=== PATIENT | female | born 1960 | race Caucasian/White ===

== ENCOUNTER 2020-02-28 19:47 | Inpatient (IN) | payer OTHER ==
[~2020-02-28] VITALS: Ht 154.9 cm; Wt 71.2 kg
[2020-02-28 23:18] LABS: Basophils # (auto) 0.1 10 ^3/uL (0-0.2); Basophils % (auto) 0.7 % (0.0-2.0); Eosinophils # (auto) 0.2 10 ^3/uL (0-0.8); Eosinophils % (auto) 1.9 % (0.0-7.0); Hematocrit 36.5 % (36.0-46.0); Hemoglobin 12.1 g/dL (12.2-16.2); Lymphocytes # (auto) 2.5 10 ^3/uL (0.4-5.4); Mean Corpuscular Hemoglobin 29.4 pg (28.0-32.0); Mean Corpuscular Hgb Conc. 33.2 g/dL (32.0-36.0); Mean Corpuscular Volume 88.5 fL (80.0-100.0); Monocytes # (auto) 0.9 10 ^3/uL (0-1.3); Monocytes % (auto) 10.2 % (0.0-12.0); Neutrophils # (auto) 5.1 10 ^3/uL (1.6-8.6); Neutrophils % (auto) 58.2 % (37.0-80.0); Nucleated Red Blood Cells % 0.1 %; Platelet Count (auto) 272 10^3/uL (140-450); Red Blood Cells 4.12 10^6/uL (4.0-5.20); Red Cell Distribution Width 13.8 % (11.8-14.3); White Blood Cell 8.8 10^3/uL (4.4-10.8)
[2020-02-28 23:33] LABS: INR 0.92 (0.9-1.15); Partial Thromboplastin Time 27.1 sec (23.0-31.2)
[2020-02-28 23:38] LABS: Albumin 3.8 g/dL (3.4-5.0); Calcium 8.5 mg/dL (8.5-10.1); Potassium 3.6 mmol/L (3.5-5.1)
[2020-02-28 23:42] LABS: BUN/Creatinine Ratio 17.2; Bilirubin, Total 0.2 mg/dL (0.2-1.0); Total Protein 7.6 g/dL (6.4-8.2)
[2020-02-29] MEDS: MORPHINE SULFATE 4 MG/ML SYR/VIAL IV PRN ×4 (04:45→23:45)
[2020-02-29] MEDS: SODIUM CHLORIDE 0.9% 1,000 ML IV SCH ×2 (06:23→17:00)
[2020-02-29] MEDS: PANTOPRAZOLE 40 MG/10 ML VIAL INJ IV SCH (10:00)
[2020-02-29] MEDS: ONDANSETRON HCL 4 MG/2 ML VIAL IV PRN ×3 (11:15→23:45)
[2020-02-29 20:55] VITALS: BP 140/75
[2020-02-29] MEDS: HYDROcodone-ACET 5/325MG TAB PO PRN (22:41)
[2020-02-29 23:14] LABS: Urine Bacteria NONE SEEN /hpf (None Seen); Urine Blood Negative /uL (Negative); Urine WBC <1 /hpf (0 - 5)
[2020-03-01] VITALS: BP 137/77
[2020-03-01] MEDS ORDERED: TRAM50TA2 PO (00:16)
[2020-03-01] MEDS ORDERED: HYDR-4902 PO (00:16)
[2020-03-01] MEDS ORDERED: OMEP-434 PO (00:16)
[2020-03-01] MEDS ORDERED: GABA300C PO (00:16)
[2020-03-01] MEDS: ONDANSETRON HCL 4 MG/2 ML VIAL IV PRN ×5 (05:36→23:27)
[2020-03-01] MEDS: MORPHINE SULFATE 4 MG/ML SYR/VIAL IV PRN ×4 (05:36→23:27)
[2020-03-01] MEDS: SODIUM CHLORIDE 0.9% 1,000 ML IV SCH (05:46)
[2020-03-01 06:36] LABS: Basophils # (auto) 0 10 ^3/uL (0-0.2); Basophils % (auto) 0.7 % (0.0-2.0); Eosinophils # (auto) 0.2 10 ^3/uL (0-0.8); Eosinophils % (auto) 2.7 % (0.0-7.0); Hemoglobin 11.8 g/dL (12.2-16.2); Lymphocytes # (auto) 2.5 10 ^3/uL (0.4-5.4); Lymphocytes % (auto) 40.8 % (10.0-50.0); Mean Corpuscular Hemoglobin 29.7 pg (28.0-32.0); Mean Corpuscular Hgb Conc. 33.7 g/dL (32.0-36.0); Mean Corpuscular Volume 88.3 fL (80.0-100.0); Monocytes # (auto) 0.7 10 ^3/uL (0-1.3); Monocytes % (auto) 10.7 % (0.0-12.0); Neutrophils # (auto) 2.8 10 ^3/uL (1.6-8.6); Neutrophils % (auto) 45.1 % (37.0-80.0); Nucleated Red Blood Cells % 0.1 %; Platelet Count (auto) 211 10^3/uL (140-450); Red Blood Cells 3.96 10^6/uL (4.0-5.20); Red Cell Distribution Width 13.9 % (11.8-14.3); White Blood Cell 6.2 10^3/uL (4.4-10.8)
[2020-03-01 07:02] LABS: BUN/Creatinine Ratio 22.4; Calcium 8.5 mg/dL (8.5-10.1); Potassium 3.9 mmol/L (3.5-5.1)
[2020-03-01 08:00] VITALS: BP 127/72
[2020-03-01] MEDS: HYDROcodone-ACET 5/325MG TAB PO PRN ×3 (08:01→21:21)
[2020-03-01] MEDS: PANTOPRAZOLE 40 MG/10 ML VIAL INJ IV SCH (10:00)
[2020-03-01] MEDS ORDERED: SUCCINYLCHOLINE CHLORIDE 20 MG/ML 10ML VIAL IV ONE (11:35)
[2020-03-01] MEDS ORDERED: MIDAZOLAM HCL 1MG/1ML-2 ML VIAL ONE (11:43)
[2020-03-01] MEDS ORDERED: fentaNYL CITRATE 100 MCG/2 ML VL ONE (11:43)
[2020-03-01] MEDS ORDERED: MEPERIDINE HCL (50 MG/ML) 1 ML VIAL ONE (11:43)
[2020-03-01] MEDS ORDERED: SODIUM CHLORIDE LOCK 10 ML ONE (11:43)
[2020-03-01] MEDS ORDERED: PROPOFOL 10 MG/ML 20 ML IV ONE (11:43)
[2020-03-01] MEDS ORDERED: LIDOCAINE 1% INJ PF 5ML AMP ONE (11:43)
[2020-03-01] MEDS ORDERED: LIDOCAINE 1% HCL (LOCAL ANESTH.) INJ 20ML MDV ONE (12:03)
[2020-03-01] MEDS ORDERED: BUPIVACAINE 0.25% INJ 50ML VIAL ONE (12:03)
[2020-03-01] MEDS ORDERED: ceFAZolin 1GM/50ML 50 ML IV ONE (12:26)
[2020-03-01] MEDS ORDERED: HYDROmorphone HCL 2 MG/ML VL ONE (14:15)
[2020-03-01] MEDS ORDERED: MORPHINE SULFATE 4 MG/ML SYR/VIAL IV PRN (14:15)
[2020-03-01] MEDS ORDERED: ONDANSETRON HCL 4 MG/2 ML VIAL IV PRN (14:15)
[2020-03-01] MEDS ORDERED: HYDROmorphone HCL 2 MG/ML VL IV PRN (14:15)
[2020-03-01 16:00] VITALS: BP 131/79
[2020-03-01] MEDS: ceFAZolin 1GM/50ML 50 ML IV SCH (20:05)
[2020-03-01] MEDS: SODIUM CHLOR 0.9% PF (SALINE LOCK) 10ML VIAL/SYR IV SCH (20:05)
[2020-03-01] MEDS: LACTATED RINGER'S 1,000 ML IV SCH ×2 (21:21→23:59)
[2020-03-01 23:00] VITALS: BP 124/71
[2020-03-02] VITALS: BP 114/69
[2020-03-02] MEDS: ceFAZolin 1GM/50ML 50 ML IV SCH (01:28)
[2020-03-02] MEDS: HYDROcodone-ACET 5/325MG TAB PO PRN ×3 (01:38→13:14)
[2020-03-02] MEDS: ONDANSETRON HCL 4 MG/2 ML VIAL IV PRN ×4 (03:29→16:36)
[2020-03-02] MEDS: MORPHINE SULFATE 4 MG/ML SYR/VIAL IV PRN ×5 (03:30→18:08)
[2020-03-02] MEDS: SODIUM CHLOR 0.9% PF (SALINE LOCK) 10ML VIAL/SYR IV SCH ×2 (05:55→14:34)
[2020-03-02 08:00] VITALS: BP 125/73
[2020-03-02 09:56] VITALS: BP 125/73
[2020-03-02] MEDS: LACTATED RINGER'S 1,000 ML IV SCH (10:00)
[2020-03-02] MEDS ORDERED: ENOXAPARIN SOD 40 MG/0.4 ML SYRINGE SC SCH (10:00)
[2020-03-02] MEDS ORDERED: HYDR-4902 PO (13:07)
[2020-03-02] MEDS ORDERED: KETOROLAC TROMETH 30 MG/ML 1ML VIAL IV ONE (14:15)
[2020-03-02 16:00] VITALS: BP 130/84
== END 2020-03-02 21:10 | disposition home or self-care (01) | DRG 510 ==
LOC: ER 19:50 → OVERFLOW 19:51 → EAST 02-29 23:06
PROVIDERS: ADMIT Nurse Practitioner; ATTEND Hospitalist
PROC: 0PSJ04Z Reposition Left Radius with Internal Fixation Device, Open Approach (ICD-10-PCS; principal; 2020-03-01 12:19)
DX: S52.532A Colles' fracture of left radius, initial encounter for closed fracture (principal); U07.1 COVID-19; S52.612A Displaced fracture of left ulna styloid process, initial encounter for closed fracture; G62.9 Polyneuropathy, unspecified; Z80.3 Family history of malignant neoplasm of breast; Z82.0 Family history of epilepsy and other diseases of the nervous system; Z82.3 Family history of stroke; Z88.8 Allergy status to other drugs, medicaments and biological substances; Z82.49 Family history of ischemic heart disease and other diseases of the circulatory system; W01.0XXA Fall on same level from slipping, tripping and stumbling without subsequent striking against object, initial encounter; Y93.89 Activity, other specified; Y92.89 Other specified places as the place of occurrence of the external cause; Y99.8 Other external cause status
CPT/HCPCS: 36415; 71045; 73090; 73100; 76000; 80048; 80053; 81001; 85025; 85610; 85730; 86850; 86900; 86901; 87426; 93005; 93971; 96360; G0378; J0330; J0690; J1885; J2001; J2250; J2405; J2704; J3490

== ENCOUNTER 2020-03-08 14:58 | Emergency (ER) | payer OTHER ==
[~2020-03-08] VITALS: Ht 154.9 cm; Wt 63.5 kg
[~2020-03-08 14:58] MED LIST: GABA300C PO; OMEP-434 PO; TRAM50TA2 PO
[2020-03-08] MEDS ORDERED: ONDANSETRON ODT 4 MG TAB PO ONE (15:30)
[2020-03-08] MEDS ORDERED: ACETAMINOPHEN/CODEINE#3 (300/30mg) TAB PO ONE (15:30)
[2020-03-08 20:30] VITALS: BP 141/87
== END 2020-03-08 20:46 | disposition home or self-care (01) ==
LOC: ER 14:58
DX: S52.532D Colles' fracture of left radius, subsequent encounter for closed fracture with routine healing (principal); X58.XXXD Exposure to other specified factors, subsequent encounter
CPT/HCPCS: 73090; 73130; 93971; 99284; Q0162

== ENCOUNTER → 2021-07-24 | Day surgery (SDC) | payer OTHER ==
[~2021-07-24] VITALS: Ht 154.9 cm; Wt 66.2 kg
[~2021-07-24] MED LIST changes: +ACET-1158 PO; +CHOL100055 PO; +DexAMETHasone SOD PHOS 10MG/1ML VIAL INJ ONE; +EPINEPHrine HCL 1 MG/1 ML AMP ONE; +GLYCOPYRROLATE 0.2 MG/ML 1ML VIAL ONE; +HYDR1TAB97 PO; +HYDROmorphone HCL 2 MG/ML VL/or syr ONE; +MEPERIDINE HCL (25 MG/ML) 1ML VIAL ONE; +METOCLOPRAMIDE HCL 5MG/ml INJ 2ml VIAL IV PRN; +MIDAZOLAM HCL 2MG/2ML 2ml VIAL (1mg/ml) ONE; +MORPHINE SULFATE 4 MG/ML SYR/VIAL ONE; +MULT-1018 OR; +NEOSTIGMINE 1 MG/ML INJ (10mg/10ML VIAL) ONE; +PROP60CA34 PO; +PROPOFOL 10 MG/ML 20 ML IV ONE; +ROCURONIUM 10MG/ML 10ML VIAL IV ONE; +SODIUM CHLORIDE LOCK 10 ML ONE; +SUCCINYLCHOLINE CHLORIDE 20 MG/ML 10ML VIAL IV ONE; +ceFAZolin 1GM/50ML 100 ML IV ONE; +fentaNYL CITRATE 100 MCG/2 ML VL IV PRN; +fentaNYL CITRATE 5 ML ONE
[2021-07-24] MEDS: HYDROmorphone HCL 2 MG/ML VL/or syr IV PRN ×3 (11:47→12:17)
[2021-07-24] MEDS: MORPHINE SULFATE 4 MG/ML SYR/VIAL IV PRN ×2 (12:00→12:32)
[2021-07-24 12:50] VITALS: BP 128/66
== END | disposition home or self-care (01) ==
LOC: SUR 07:31
PROVIDERS: ATTEND Orthopaedic Surgery Sports Medicine
DX: M75.121 Complete rotator cuff tear or rupture of right shoulder, not specified as traumatic (principal); S43.431A Superior glenoid labrum lesion of right shoulder, initial encounter; M94.211 Chondromalacia, right shoulder; M65.9 Synovitis and tenosynovitis, unspecified; G89.29 Other chronic pain; G43.909 Migraine, unspecified, not intractable, without status migrainosus; Z98.890 Other specified postprocedural states; Z79.899 Other long term (current) drug therapy; Z90.710 Acquired absence of both cervix and uterus; Z82.49 Family history of ischemic heart disease and other diseases of the circulatory system; Z80.3 Family history of malignant neoplasm of breast; Z81.8 Family history of other mental and behavioral disorders; Z81.1 Family history of alcohol abuse and dependence; Z20.822 Contact with and (suspected) exposure to COVID-19; X58.XXXA Exposure to other specified factors, initial encounter; Y92.89 Other specified places as the place of occurrence of the external cause; Y93.89 Activity, other specified; Y99.8 Other external cause status
CPT/HCPCS: 29826; 29827; J0171; J0330; J0690; J1100; J1170; J2175; J2250; J2270; J2704; J3010; U0003; A4565